=== PATIENT | female | born 1965 | race Caucasian/White ===

== ENCOUNTER 2018-04-11 09:36 | Emergency (ER) | payer BC ==
--- NOTE | 2018-04-11 09:42 | PDOC ---
History of Present Illness - General Chief Complaint: Lightheaded Stated Complaint: NOSE BLEED Time Seen by Provider: 04/11/18 09:42 History Source: Patient Exam Limitations: No Limitations - History of Present Illness Initial Comments: 04/11/18 10:09 52 year old female with PMH HLD, uterine hyperplasia, chronic nosebleeds presented to ED for nose bleed associated with lightheadedness. She stated she had a nosebleed yesterday that self resolved, she stated she believed it was because she had the heat on, which usually dries out her nose. She stated she had another nose bleed today that lasted 40 minutes and involved passing multiple clots. She stated she began to feel lightheaded at 0800, and still feels lightheaded now. She stated she gets nose bleeds around twice a year, but that todays lasted longer and had more clots than usual. She denied chest pain, palpitations, shortness of breath, cough, nausea, vomiting, abdominal pain, calf swelling. She admitted to two episode of loose brown stool today, denied blood. She denied hx DVT/PE, travel<5 hours, calf swelling, bed rest>3 days, surgery <4 weeks, active malignancy <6 months, travel>5 hours. Past surgical history: nasal cauterization (12 years old) Past History - Past Medical History Allergies/Adverse Reactions: Allergies Allergy/AdvReac Type Severity Reaction Status Date / Time No Known Drug Allergies Allergy Verified 04/11/18 13:05 pergenolon AdvReac Uncoded 04/11/18 13:04 Home Medications: Ambulatory Orders Atorvastatin Ca [Lipitor] 20 mg PO HS 08/09/15 Hypercholesterolemia: Yes - Suicide/Smoking/Psychosocial Hx Smoking History: Never smoked Have you smoked in the past 12 months: No Hx Alcohol Use: No Drug/Substance Use Hx: No Substance Use Type: None Review of Systems - Review of Systems Able to Perform ROS?: Yes Comments:: 04/11/18 09:49 General: denied fever, chills, night sweats, generalized weakness. HEENT: admitted to nose bleed. denied sore throat, rhinorrhea, ear pain. Heart: admitted to lightheadedness. denied chest pain, palpitations, syncope, lower extremity swelling, diaphoresis. Respiratory: denied shortness of breath, cough, sputum production, hemoptysis. Abdomen: admitted to diarrhea. denied abdominal pain, nausea, vomiting, constipation, blood in stool. : denied dysuria, increased urinary frequency, hematuria, urinary incontinence , flank pain. Back: denied back pain. Musculoskeletal: denied joint pain, muscle pain, joint swelling. Neurological: denied headache, dizziness, numbness, tingling, weakness. Skin: denied rash, laceration, abrasion. *Physical Exam - Physical Exam Comments: 04/11/18 09:50 Constitutional: Well-nourished, Well-developed, appearing stated age. HEENT: head is normocephalic, atraumatic. EOMI. PERRLA. no septal hematoma bilaterally. no active bleeding. no clots noted bilaterally. posterior pharynx no erythema. no tonsillar swelling bilaterally. no tonsillar exudates bilaterally. no blood in posterior pharynx. Neck: supple. Full ROM. no carotid bruit bilaterally. Heart: regular rhythm. no murmurs, rubs or gallops. Lungs: clear to auscultation bilaterally. no crackles, rhonchi or wheezing. no stridor. Abdomen: soft, nontender. normal bowel sounds. no rebound, guarding, masses. Extremities: Peripheral pulses intact. No lower extremity edema. Neurological: CN 2-12 grossly intact. Moves all four extremities. Psych: awake, alert, oriented x3. Follows commands. Answers questions appropriately. ED Treatment Course - LABORATORY CBC & Chemistry Diagram: 04/11/18 10:16 04/11/18 10:16 Medical Decision Making - Medical Decision Making 04/11/18 09:47 52 year old female with PMH HLD, chronic nose bleeds, prior nasal cauterization presented to ED for lightheadedness associated with nose bleed. Initial Vital Signs Temp Pulse Resp BP Pulse Ox 98.4 F 76 18 150/95 100 04/11/18 09:42 04/11/18 09:42 04/11/18 09:42 04/11/18 09:42 04/11/18 09:42 Afebrile. No tachycardia. No tachypnea. Mild hypertension. No hypoxia on room air. Pending CBC for evaluation of possible anemia. Pending coags, CBC for evaluation of clotting factors and platelet count. Pending EKG, cardiac enzymes for evaluation of possible ACS/arrhythmia. Pending BMP, Mg for evaluation of possible electrolyte abnormality. 04/11/18 11:53 CBC WBC 7.4 K/mm3 (4.0-10.0) 04/11/18 10:16 RBC 5.20 M/mm3 (3.60-5.2) 04/11/18 10:16 Hgb 15.2 GM/dL (10.7-15.3) 04/11/18 10:16 Hct 45.3 % (32.4-45.2) H D 04/11/18 10:16 MCV 87.2 fl (80-96) 04/11/18 10:16 MCH 29.2 pg (25.7-33.7) 04/11/18 10:16 MCHC 33.5 g/dl (32.0-36.0) 04/11/18 10:16 RDW 13.5 % (11.6-15.6) 04/11/18 10:16 Plt Count 241 K/MM3 (134-434) 04/11/18 10:16 MPV 9.1 fl (7.5-11.1) 04/11/18 10:16 Absolute Neuts (auto) 4.6 K/mm3 (1.5-8.0) 04/11/18 10:16 Neutrophils % 62.2 % (42.8-82.8) 04/11/18 10:16 Lymphocytes % 29.0 % (8-40) 04/11/18 10:16 Monocytes % 7.3 % (3.8-10.2) 04/11/18 10:16 Eosinophils % 1.0 % (0-4.5) 04/11/18 10:16 Basophils % 0.5 % (0-2.0) 04/11/18 10:16 Nucleated RBC % 0 % (0-0) 04/11/18 10:16 No leukocytosis. No anemia. CMP Sodium 137 mmol/L (136-145) 04/11/18 10:16 Potassium 3.9 mmol/L (3.5-5.1) 04/11/18 10:16 Chloride 102 mmol/L (98-107) 04/11/18 10:16 Carbon Dioxide 27 mmol/L (21-32) 04/11/18 10:16 Anion Gap 8 MMOL/L (8-16) 04/11/18 10:16 BUN 17 mg/dL (7-18) 04/11/18 10:16 Creatinine 0.8 mg/dL (0.55-1.3) 04/11/18 10:16 Creat Clearance w eGFR > 60 (>60) 04/11/18 10:16 Random Glucose 108 mg/dL (74-106) H 04/11/18 10:16 Calcium 8.9 mg/dL (8.5-10.1) 04/11/18 10:16 Magnesium 1.9 mg/dL (1.8-2.4) 04/11/18 10:16 Creatine Kinase 116 IU/L (26-192) 04/11/18 10:16 Troponin I < 0.02 ng/ml (0.00-0.05) 04/11/18 10:16 TSH 0.76 uIU/ml (0.358-3.74) 04/11/18 10:16 No electrolyte abnormality. No DIO. Normal cardiac enzymes. Normal TSH. INR, PTT INR 0.97 (0.83-1.09) 04/11/18 10:16 Normal coags. Vital Signs Temperature 96.8 F L 04/11/18 11:53 Pulse Rate 68 04/11/18 11:53 Respiratory Rate 18 04/11/18 11:53 Blood Pressure 151/90 04/11/18 11:53 O2 Sat by Pulse Oximetry (%) 100 04/11/18 11:53 Pending EKG. Pt reassessed, reported no chest pain, no shortness of breath, no nasal bleeding. Reported resolution of lightheadedness. 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 04/11/18 12:09 EKG performed at 1206: rate 64, regular rhythm, normal axis, nonspecific ST changes. *DC/Admit/Observation/Transfer Diagnosis at time of Disposition: Lightheadedness - Discharge Dispostion Disposition: HOME Condition at time of disposition: Improved Decision to Admit order: No - Referrals Referrals: Adrián Morillo MD [Primary Care Provider] - - Patient Instructions Printed Discharge Instructions: DI for Nosebleed Additional Instructions: You were seen today for lightheadedness. Your labs and EKG were normal. Follow up with your primary care doctor in 1-2 days. Return to Emergency Department for chest pain, shortness of breath, palpitations, nose bleeding that does not resolve, or any other new, worsening or concerning symptoms. Use Afrin if you have another nose bleed. - Post Discharge Activity
[2018-04-11 09:46] VITALS: BMI 29.2
[2018-04-11 10:27] LABS: BASO % 0.5 % (0-2.0); HEMATOCRIT 45.3 % (32.4-45.2); HEMOGLOBIN 15.2 GM/dL (10.7-15.3); MCH 29.2 pg (25.7-33.7); MCHC 33.5 g/dl (32.0-36.0); MEAN CELL VOLUME 87.2 fl (80-96); MEAN PLT VOLUME 9.1 fl (7.5-11.1); MONO % 7.3 % (3.8-10.2); NEUT % 62.2 % (42.8-82.8); PLATELET COUNT 241 K/MM3 (134-434); RDW 13.5 % (11.6-15.6); WHITE BLOOD COUNT 7.4 K/mm3 (4.0-10.0)
[2018-04-11] MEDS ORDERED: SODIUM CHLORIDE 1,000 ML IV STA (10:50)
[2018-04-11] MEDS ORDERED: ONDANSETRON 4 MG/2 ML VIAL IVPUSH ONE (10:50)
[2018-04-11 11:02] LABS: ANION GAP 8 MMOL/L (8-16); BLOOD UREA NITROGEN 17 mg/dL (7-18); CALCIUM 8.9 mg/dL (8.5-10.1); CHLORIDE 102 mmol/L (98-107); CO2 27 mmol/L (21-32); CREATININE 0.8 mg/dL (0.55-1.3); GLUCOSE,RANDOM 108 mg/dL (74-106); MAGNESIUM 1.9 mg/dL (1.8-2.4); POTASSIUM 3.9 mmol/L (3.5-5.1); SODIUM 137 mmol/L (136-145)
[2018-04-11 11:21] LABS: INR 0.97 (0.83-1.09); PROTHROMBIN TIME (PATIENT) 11.5 SEC (9.7-13.0)
[2018-04-11 11:53] VITALS: BP 151/90; PULSE 68; TEMP 96.8
[2018-04-11] MEDS ORDERED: OXYMETAZOLINE 0.05% NASAL SOLUTION 15 ML BOTTLE NS ONE (12:21)
--- NOTE | 2018-04-11 12:48 | PDOC ---
Attending Attestation - HPI HPI: 04/11/18 13:36 The patient is a 52 year old female, with a significant past medical history of frequent recurrent epistaxis, who presents to the emergency department with lightheadedness after 40 minutes of nose bleeding which is longer than usual for her. She states there were large clots coming from her nares. She states the blood stopped before ED arrival, however, was concerned about her lightheadedness. Secondarily, she reports a couple episodes of nonbloody loose diarrhea. The patient denies chest pain, shortness of breath, headache and dizziness. The patient denies fever, chills, nausea, vomit, and constipation. The patient denies dysuria, frequency, urgency and hematuria. Allergies: NKDA Past surgical history: Nasal cauterization - Medical Decision Making 04/11/18 13:36 Documentation prepared by Olga Woodson, acting as neuropsychology medical consultant for Ann Henderson MD <Olga Woodson - Last Filed: 04/11/18 13:35> - Resident Resident Name: Aisha Rodriguez - ED Attending Attestation I have performed the following: I have examined & evaluated the patient, The case was reviewed & discussed with the resident, I agree w/resident's findings & plan, Exceptions are as noted - Physicial Exam PE: GENERAL: Awake, alert, and fully oriented, in no acute distress HEAD: No signs of trauma EYES: PERRLA, EOMI, sclera anicteric, conjunctiva clear ENT: Auricles normal inspection, hearing grossly normal, nares patent, oropharynx clear without exudates. Moist mucosa. No obvious source of bleeding in the nares B/L. NECK: Normal ROM, supple, no lymphadenopathy, JVD, or masses LUNGS: Breath sounds equal, clear to auscultation bilaterally. No wheezes, and no crackles HEART: Regular rate and rhythm, normal S1 and S2, no murmurs, rubs or gallops ABDOMEN: Soft, nontender, normoactive bowel sounds. No guarding, no rebound. No masses EXTREMITIES: Normal range of motion, no edema. No clubbing or cyanosis. No cords, erythema, or tenderness NEUROLOGICAL: Cranial nerves II through XII grossly intact. Normal speech, normal gait SKIN: Warm, Dry, normal turgor, no rashes or lesions noted. - Medical Decision Making Pt with stable H&H, no active bleeding at present. Counseled her not to put tissues inside her nose when she is bleeding, as she will disturb the clot when she removes them. Stable for DC home. <Ann Henderson - Last Filed: 04/11/18 14:09>
--- NOTE | 2018-04-11 13:40 | EKG ---
Test Reason : Blood Pressure : / mmHG Vent. Rate : 064 BPM Atrial Rate : 064 BPM P-R Int : 144 ms QRS Dur : 080 ms QT Int : 434 ms P-R-T Axes : 031 030 031 degrees QTc Int : 447 ms NORMAL SINUS RHYTHM NORMAL ECG WHEN COMPARED WITH ECG OF 09-AUG-2015 09:21, NO SIGNIFICANT CHANGE WAS FOUND Confirmed by FINESSE WADDELL MD ([id number]) on 04/11/2018 1:39:33 PM Referred By: Confirmed By:FINESSE WADDELL MD
== END 2018-04-11 13:12 | disposition home or self-care (01) ==
LOC: JER 09:36
PROC: 3E0337Z Introduction of Electrolytic and Water Balance Substance into Peripheral Vein, Percutaneous Approach (ICD-10-PCS; principal; 2018-04-11)
DX: R42 Dizziness and giddiness (principal); R07.0 Pain in throat
CPT/HCPCS: 36415; 80048; 82550; 83735; 84443; 84484; 85025; 85610; 85730; 86850; 86900; 86901; 93005; 93010; 99283-25; J7030